=== PATIENT | female | born 1985 | race Caucasian/White ===

== ENCOUNTER 2016-04-25 13:03 | Outpatient (CLI) | payer BC ==
[2016-04-25 13:22] VITALS: BP 130/73
[2016-04-25 14:05] VITALS: BP 135/81
[2016-04-25 14:10] LABS: HEMATOCRIT 34.2 % (36.0-46.0); MCH 32.3 PG (29.0-34.0); MCHC 35.7 G/DL (30.0-36.0); MCV 90.5 FL (83-99); MEAN PLAT.VOLUME 9.7 uM^3 (9.5-12.4); PLATELET COUNT 214 K/uL (156-360); RBC DIS.WIDTH-CV 12.7 % (11.8-14.6); RBC DIS.WIDTH-SD 42.1 % (39-53); RED BLOOD COUNT 3.78 M/uL (3.80-5.20); WHITE BLOOD COUNT 11.9 K/uL (4.1-10.2)
[2016-04-25 14:25] LABS: UR CREATININE CONCENTRATION 84.3 MG/DL
[2016-04-25 14:34] VITALS: BP 135/72
[2016-04-25 14:35] LABS: ANION GAP 8 MEQ/L (2-14); CHLORIDE 105 MEQ/L (99-109); POTASSIUM 3.6 MEQ/L (3.7-5.4); SAMPLE HEMOLYSIS CHECK 0; SAMPLE ICTERIC CHECK 0; SAMPLE LIPEMIA CHECK 0; SODIUM 137 MEQ/L (136-147); TOTAL BILIRUBIN 0.5 MG/DL (0.0-1.0)
[2016-04-25 14:40] LABS: ALKALINE PHOSPHATASE 59 IU/L (3-129); GFR ESTIMATE (CALCULATED) > 59 mL/min/; GLUCOSE 208 mg/dL (70-99); UREA NITROGEN (BUN) 12 mg/dL (9-23); URIC ACID 3.2 mg/dL (3.1-9.2)
[2016-04-25 15:02] LABS: Estimated Average Glucose 160 mg/dL (70-123); HEMOGLOBIN A1c (GLYCOHEMOGLOB) 7.2 % HGB (Below 5.7)
[2016-04-25 15:07] VITALS: BP 122/75
[2016-04-25 15:35] VITALS: BP 133/71
== END 2016-04-25 16:45 | disposition home or self-care (01) ==
LOC: LDRP-OP 13:03 → 2WEST 13:04
PROVIDERS: Nurse Practitioner
DX: O24.419 Gestational diabetes mellitus in pregnancy, unspecified control (principal); Z3A.27 27 weeks gestation of pregnancy
CPT/HCPCS: 59025; 80053; 82570; 83036; 84156; 84550; 85027; 86850; 86900; 86901; G0378; J2790

== ENCOUNTER 2016-06-09 10:18 | Outpatient (CLI) | payer BC ==
[~2016-06-09] VITALS: Ht 167.6 cm; Wt 93.4 kg
[2016-06-09 11:39] VITALS: BP 136/79
== END 2016-06-09 12:20 | disposition home or self-care (01) ==
LOC: LDRP-OP 10:18 → 2WEST 10:19 → LDRP-OP 08-18 17:58
DX: O35.8XX0 Maternal care for other (suspected) fetal abnormality and damage, not applicable or unspecified (principal); Z3A.34 34 weeks gestation of pregnancy; O24.013 Pre-existing type 1 diabetes mellitus, in pregnancy, third trimester; E10.9 Type 1 diabetes mellitus without complications
CPT/HCPCS: 59025; G0378

== ENCOUNTER 2016-06-23 11:44 | Outpatient (CLI) | payer BC ==
[2016-06-23 12:08] VITALS: BP 131/76
[2016-06-23 13:07] LABS: EOSINOPHIL (%) 0.7 % (0-5); EOSINOPHIL COUNT 0.1 K/uL (0-0.3); HEMATOCRIT 33.7 % (36.0-46.0); IMMATURE GRANULOCYTE (%) 1.2 % (0.0-0.7); IMMATURE GRANULOCYTE COUNT 0.2 K/uL; INSTRUMENT ABS NEUTROPHIL CT 8.3 K/uL; LYMPHOCYTE COUNT 3.7 K/uL (1.0-2.8); MCH 32.5 PG (29.0-34.0); MCHC 35.9 G/DL (30.0-36.0); MCV 90.6 FL (83-99); MEAN PLAT.VOLUME 10.1 uM^3 (9.5-12.4); MONOCYTE (%) 6.7 % (3-12); MONOCYTE COUNT 0.9 K/uL (0-0.8); NEUTROPHIL (%) 63.1 % (45-76); NEUTROPHIL COUNT 8.3 K/uL (1.8-6.4); PLATELET COUNT 191 K/uL (156-360); RBC DIS.WIDTH-CV 13.2 % (11.8-14.6); RBC DIS.WIDTH-SD 43.1 % (39-53); RED BLOOD COUNT 3.72 M/uL (3.80-5.20); WHITE BLOOD COUNT 13.2 K/uL (4.1-10.2)
[2016-06-23 13:10] VITALS: BP 131/68
[2016-06-23 13:21] LABS: CHLORIDE 107 mEq/L (99-109); POTASSIUM 3.7 mEq/L (3.7-5.4); SODIUM 136 mEq/L (136-147)
[2016-06-23 13:23] LABS: GLUCOSE 78 mg/dL (70-99)
[2016-06-23 13:24] LABS: ANION GAP 9 MEQ/L (2-14)
[2016-06-23 13:25] LABS: TOTAL BILIRUBIN 0.4 mg/dL (0.0-1.0)
[2016-06-23 13:26] LABS: ALKALINE PHOSPHATASE 102 IU/L (3-129)
[2016-06-23 13:27] LABS: GFR ESTIMATE (CALCULATED) > 59 mL/min/
[2016-06-23 13:28] LABS: UREA NITROGEN (BUN) 15 mg/dL (9-23)
[2016-06-23 14:05] VITALS: BP 135/73
[2016-06-23 15:18] LABS: UR CREATININE CONCENTRATION 85.8 MG/DL
[2016-06-23 15:55] VITALS: BP 135/78
== END 2016-06-23 16:40 | disposition home or self-care (01) ==
LOC: LDRP-OP 11:44 → 2WEST 11:45 → LDRP-OP 08-18 13:47
PROVIDERS: Nurse Practitioner
DX: O13.3 Gestational [pregnancy-induced] hypertension without significant proteinuria, third trimester (principal); O24.013 Pre-existing type 1 diabetes mellitus, in pregnancy, third trimester; E10.9 Type 1 diabetes mellitus without complications; Z3A.36 36 weeks gestation of pregnancy
CPT/HCPCS: 59025; 80053; 82570; 84156; 85025; G0378

== ENCOUNTER 2016-07-05 14:58 | Inpatient (IN) | payer BC ==
[~2016-07-05] VITALS: Ht 165.1 cm; Wt 94.8 kg
[2016-07-05] VITALS (12 sets, daily range): BP systolic 117–151; BP diastolic 59–79
[2016-07-05 16:48] LABS: EOSINOPHIL (%) 0.4 % (0-5); EOSINOPHIL COUNT 0.1 K/uL (0-0.3); HEMATOCRIT 35.3 % (36.0-46.0); IMMATURE GRANULOCYTE (%) 0.5 % (0.0-0.7); IMMATURE GRANULOCYTE COUNT 0.1 K/uL; INSTRUMENT ABS NEUTROPHIL CT 9.4 K/uL; LYMPHOCYTE COUNT 3.1 K/uL (1.0-2.8); MCH 32.4 PG (29.0-34.0); MCHC 35.7 G/DL (30.0-36.0); MCV 90.7 FL (83-99); MEAN PLAT.VOLUME 10.2 uM^3 (9.5-12.4); MONOCYTE (%) 5.4 % (3-12); MONOCYTE COUNT 0.7 K/uL (0-0.8); NEUTROPHIL (%) 70.3 % (45-76); NEUTROPHIL COUNT 9.4 K/uL (1.8-6.4); PLATELET COUNT 181 K/uL (156-360); RBC DIS.WIDTH-CV 13.3 % (11.8-14.6); RBC DIS.WIDTH-SD 43.7 % (39-53); RED BLOOD COUNT 3.89 M/uL (3.80-5.20); WHITE BLOOD COUNT 13.4 K/uL (4.1-10.2)
[2016-07-05 16:58] LABS: ANION GAP 10 MEQ/L (2-14); CHLORIDE 103 MEQ/L (99-109); POTASSIUM 3.7 MEQ/L (3.7-5.4); SAMPLE HEMOLYSIS CHECK 0; SAMPLE ICTERIC CHECK 0; SAMPLE LIPEMIA CHECK 0; SODIUM 136 MEQ/L (136-147); TOTAL BILIRUBIN 0.7 MG/DL (0.0-1.0)
[2016-07-05 17:04] LABS: ALKALINE PHOSPHATASE 112 IU/L (3-129); GFR ESTIMATE (CALCULATED) > 59 mL/min/; GLUCOSE 137 mg/dL (70-99); UREA NITROGEN (BUN) 17 mg/dL (9-23)
[2016-07-05] MEDS ORDERED: PRENATAL TABLE1 EAC3 PO (17:10)
[2016-07-05] MEDS ORDERED: MAGNESIUM 300300 MG PO (17:10)
[2016-07-05] MEDS ORDERED: CELEXA20 MG PO (17:10)
[2016-07-05] MEDS ORDERED: NOVOLOG PE100 UNITS/ SC (17:11)
[2016-07-05] MEDS ORDERED: NOVOLIN N100 UNITS/ SC ×4 (17:13→17:14)
[2016-07-06] VITALS (34 sets, daily range): BP systolic 108–169; BP diastolic 56–93
[2016-07-06 00:16] LABS: POINT-OF-CARE METER ID UU13113692
[2016-07-06 04:41] LABS: POINT-OF-CARE METER ID UU13113692
[2016-07-06 08:37] LABS: POINT-OF-CARE METER ID UU13113692
[2016-07-06 11:58] LABS: POINT-OF-CARE METER ID UU13113692; POINT-OF-CARE USER ID PUTRLG40
[2016-07-06 11:58] LABS: POINT-OF-CARE METER ID UU13113692; POINT-OF-CARE USER ID PUTRLG40
[2016-07-06 15:51] LABS: POINT-OF-CARE METER ID UU13113692; POINT-OF-CARE USER ID PUTRLG40
[2016-07-06 20:07] LABS: POINT-OF-CARE METER ID UU13113801
[2016-07-07] VITALS (20 sets, daily range): BP systolic 104–158; BP diastolic 55–86
[2016-07-07 00:06] LABS: POINT-OF-CARE METER ID UU13113801
[2016-07-07 04:38] LABS: POINT-OF-CARE METER ID UU13113692
[2016-07-07 08:42] LABS: POINT-OF-CARE METER ID UU13113692
[2016-07-07 11:11] LABS: POINT-OF-CARE METER ID UU13113692
[2016-07-07 16:07] LABS: POINT-OF-CARE METER ID UU13113692
[2016-07-07] MEDS ORDERED: IBUPROFEN800 MG PO (17:47)
[2016-07-08 07:18] VITALS: BP 137/74
[2016-07-08 08:18] LABS: EOSINOPHIL (%) 0.4 % (0-5); EOSINOPHIL COUNT 0.1 K/uL (0-0.3); HEMATOCRIT 29.8 % (36.0-46.0); IMMATURE GRANULOCYTE (%) 0.4 % (0.0-0.7); IMMATURE GRANULOCYTE COUNT 0.1 K/uL; LYMPHOCYTE COUNT 3.8 K/uL (1.0-2.8); MCH 32.8 PG (29.0-34.0); MCHC 35.2 G/DL (30.0-36.0); MCV 93.1 FL (83-99); MEAN PLAT.VOLUME 10.4 uM^3 (9.5-12.4); MONOCYTE (%) 6.7 % (3-12); MONOCYTE COUNT 0.9 K/uL (0-0.8); NEUTROPHIL (%) 64.9 % (45-76); PLATELET COUNT 160 K/uL (156-360); RBC DIS.WIDTH-CV 13.2 % (11.8-14.6); RBC DIS.WIDTH-SD 45.1 % (39-53); WHITE BLOOD COUNT 13.9 K/uL (4.1-10.2)
[2016-07-08 11:28] LABS: POINT-OF-CARE METER ID UU13113692
[2016-07-08 11:28] LABS: POINT-OF-CARE METER ID UU13113692
[2016-07-08 11:28] LABS: POINT-OF-CARE METER ID UU13113692
[2016-07-08 15:10] VITALS: BP 154/75
[2016-07-08 16:13] LABS: POINT-OF-CARE METER ID UU13113801
[2016-07-08 21:22] LABS: POINT-OF-CARE METER ID UU13113692
[2016-07-08 23:25] VITALS: BP 147/68
[2016-07-09 07:20] VITALS: BP 147/78
[2016-07-09 07:45] LABS: POINT-OF-CARE METER ID UU13113801; POINT-OF-CARE USER ID PUTRLG40
[2016-07-09 10:23] LABS: POINT-OF-CARE METER ID UU13113801; POINT-OF-CARE USER ID PUTRLG40
[2016-07-09] MEDS ORDERED: TYLENOL REGULA325 MG PO (11:38)
[2016-07-09] MEDS ORDERED: NOVOLIN N100 UNITS/ SC ×2 (11:39)
[2016-07-09] MEDS ORDERED: NOVOLOG PE100 UNITS/ SC (11:39)
[2016-07-09] MEDS ORDERED: HYDROCHLOROTHIA25 MG PO (11:39)
== END 2016-07-09 13:25 | disposition home or self-care (01) | DRG 775 ==
LOC: LDRP-OP 14:58 → 2WEST 14:59 → LDRP-OP 08-18 16:46
PROVIDERS: Midwife; Obstetrics & Gynecology
PROC: 3E0P7GC Introduction of Other Therapeutic Substance into Female Reproductive, Via Natural or Artificial Opening (ICD-10-PCS; principal; 2016-07-05)
PROC: 3E033VJ Introduction of Other Hormone into Peripheral Vein, Percutaneous Approach (ICD-10-PCS; 2016-07-06)
PROC: 3E0S3CZ (ICD-10-PCS; 2016-07-06)
PROC: 00HU33Z Insertion of Infusion Device into Spinal Canal, Percutaneous Approach (ICD-10-PCS; 2016-07-06)
PROC: 10907ZC Drainage of Amniotic Fluid, Therapeutic from Products of Conception, Via Natural or Artificial Opening (ICD-10-PCS; 2016-07-07)
PROC: 10E0XZZ Delivery of Products of Conception, External Approach (ICD-10-PCS; 2016-07-07)
PROC: 4A1H74Z Monitoring of Products of Conception, Cardiac Electrical Activity, Via Natural or Artificial Opening (ICD-10-PCS; 2016-07-07)
DX: O36.5930 Maternal care for other known or suspected poor fetal growth, third trimester, not applicable or unspecified (principal); O76 Abnormality in fetal heart rate and rhythm complicating labor and delivery; O24.02 Pre-existing type 1 diabetes mellitus, in childbirth; E10.21 Type 1 diabetes mellitus with diabetic nephropathy; O13.4 Gestational [pregnancy-induced] hypertension without significant proteinuria, complicating childbirth; Z3A.38 38 weeks gestation of pregnancy; Z37.0 Single live birth; O99.824 Streptococcus B carrier state complicating childbirth; O99.344 Other mental disorders complicating childbirth; F41.9 Anxiety disorder, unspecified; F32.9 Major depressive disorder, single episode, unspecified; E66.9 Obesity, unspecified; O99.214 Obesity complicating childbirth; O26.893 Other specified pregnancy related conditions, third trimester; Z67.41 Type O blood, Rh negative; Z79.4 Long term (current) use of insulin
CPT/HCPCS: 80053; 82948; 83030; 85025; 86870; 86900; 86901; C1726; C1755; G0378; J0595; J1815; J2405; J2540; J2765; J2790; J2795; J3010; J7120